=== PATIENT | female | born 1940 | race Two or more races ===

== ENCOUNTER 2024-01-31 05:22 | Inpatient (IN) | payer MEDICARE, OTHER ==
[~2024-01-31] VITALS: Ht 157.5 cm; Wt 71.7 kg
[2024-01-31] MEDS ORDERED: MIDAZOLAM HCL 2 MG/2ML VIAL ONE (06:02)
[2024-01-31] MEDS ORDERED: FENTANYL PF 100MCG/2ML AMPUL ONE (06:02)
[2024-01-31] MEDS ORDERED: POLYMYXIN B SULFATE 500,000 UNITS ONE (06:03)
[2024-01-31] MEDS ORDERED: LIDOCAINE 2%-EPI 1:100,000 30 ML VIAL ONE (06:03)
[2024-01-31] MEDS ORDERED: ANESTHESIA TRAY IN PYXIS 1 EA TRAY MC ONE (06:03)
[2024-01-31] MEDS ORDERED: BUPIVACAINE 0.5 % PF 150 MG/30 ML VIAL ONE ×2 (06:03→06:04)
[2024-01-31] MEDS ORDERED: TRANEXAMIC ACID 3,000 MG in SODIUM CHLORIDE IRRIG SOLUTION 70 ML IR ONE (07:00)
[2024-01-31] MEDS ORDERED: HYDROMORPHONE 1 MG/1 ML DISP.SYRIN IV PRN (07:00)
[2024-01-31] MEDS ORDERED: TRANEXAMIC ACID 1,000 MG/10 ML VIAL ONE (07:06)
[2024-01-31] MEDS ORDERED: SEVOFLURANE 250 ML BOTTLE IH ONE (07:21)
[2024-01-31] MEDS: TRAMADOL HCL 50 MG TABLET PO PRN (09:53)
[2024-01-31] MEDS ORDERED: SENNOSIDES 8.6 MG TABLET PO PRN (10:00)
[2024-01-31] MEDS ORDERED: BISACODYL SUPP (10 MG) 10 MG/SUPP.RECT SUPP.RECT RC PRN (10:00)
[2024-01-31] MEDS ORDERED: ACETAMINOPHEN 325 MG TABLET PO PRN (10:00)
[2024-01-31] MEDS ORDERED: DOCUSATE SODIUM 250 MG CAPSULE PO PRN (10:00)
[2024-01-31] MEDS ORDERED: ALEN70TA80 PO (11:15)
[2024-01-31] MEDS ORDERED: FAMO20TA8 PO (11:15)
[2024-01-31] MEDS ORDERED: CALC-1008 PO (11:15)
[2024-01-31] MEDS ORDERED: DIPH1TAB PO (11:15)
[2024-01-31] MEDS ORDERED: UBID200C36 PO (11:15)
[2024-01-31] MEDS ORDERED: BENZ200C53 PO (11:15)
[2024-01-31] MEDS ORDERED: CHOL100062 PO (11:15)
[2024-01-31] MEDS ORDERED: LACT1CAP69 PO (11:15)
[2024-01-31] MEDS ORDERED: CHLO25TA2 PO (11:15)
[2024-01-31] MEDS ORDERED: IRBE300T19 PO (11:15)
[2024-01-31] MEDS ORDERED: AZEL205. BNOSTRILS (11:15)
[2024-01-31] MEDS ORDERED: ROSU10TA2 PO (11:15)
[2024-01-31] MEDS ORDERED: ASPI-1420 PO (11:15)
[2024-01-31] MEDS ORDERED: DILT-3 PO (11:15)
[2024-01-31] MEDS ORDERED: MULT-754 PO (11:15)
[2024-01-31] MEDS: IV D5/0.45 NACL 1,000 ML IV PRN (14:47)
[2024-01-31] MEDS: ANCEF 1 GM/50 ML D5W IV SCH (16:26)
[2024-01-31] MEDS ORDERED: DIPHENOXYLATE HCL/ATROP SULF 1 UDTAB TABLET PO PRN (17:30)
[2024-01-31] MEDS ORDERED: ALENDRONATE 70 MG TABLET PO SCH (17:30)
[2024-01-31] MEDS ORDERED: [UNRECOGNIZED DRUG - OTHER] XX SCH (17:30)
[2024-01-31] MEDS ORDERED: HOME MED MISCELLANEOUS XX SCH (17:30)
[2024-01-31] MEDS ORDERED: BENZONATATE 100 MG CAPSULE PO PRN (17:30)
[2024-01-31] MEDS: CHOLECALCIFEROL 1,000 UNIT TABLET (VIT D3) PO SCH (17:45)
[2024-01-31] MEDS: ATORVASTATIN 40 MG TABLET PO SCH (17:50)
[2024-01-31] MEDS: CALCIUM CARB 600MG /VIT D 1 EACH TABLET PO SCH (17:51)
[2024-01-31] MEDS: LOSARTAN POTASSIUM 50 MG TABLET PO SCH (17:52)
[2024-01-31 20:00] VITALS: BP 126/57; TEMP 97.7; O2SAT 91
[2024-01-31 21:00] VITALS: O2SAT 95
[2024-01-31] MEDS: ZOLPIDEM TARTRATE 5 MG TABLET PO PRN (21:25)
[2024-02-01] MEDS: ONDANSETRON HCL/PF 4 MG/2 ML VIAL IV PRN (06:12)
[2024-02-01 07:30] VITALS: BP_SYST 122; BP_SYST 143; BP_DIAS 62; BP_DIAS 85; TEMP 98.1; TEMP 99.5; O2SAT 92; O2SAT 93
[2024-02-01] MEDS: ASPIRIN 325 MG TABLET PO SCH (08:19)
[2024-02-01] MEDS: LACTOBACILLUS RHAMNOSUS GG 1 EACH CAP.SPRINK PO SCH (08:20)
[2024-02-01] MEDS: MULTIVITAMINS,THERAGRAN 1 UDTAB TABLET PO SCH (08:20)
[2024-02-01] MEDS: FAMOTIDINE (20 MG) 20 MG TABLET PO SCH (08:20)
[2024-02-01 08:21] VITALS: BP 143/62
[2024-02-01] MEDS: DILTIAZEM HCL CD 240 MG PO SCH (08:21)
[2024-02-01] MEDS ORDERED: ASPIRIN EC 81 MG TABLET.DR PO SCH (09:00)
[2024-02-01] MEDS ORDERED: ASPI-992 PO (09:12)
== END 2024-02-01 14:00 | disposition home or self-care (01) | DRG 470 ==
LOC: DS 05:22 → MED 09:24
PROVIDERS: ADMIT Specialist; ATTEND Specialist
PROC: 0SRD0J9 Replacement of Left Knee Joint with Synthetic Substitute, Cemented, Open Approach (ICD-10-PCS; principal; 2024-01-31)
DX: M17.12 Unilateral primary osteoarthritis, left knee (principal); I10 Essential (primary) hypertension; E78.5 Hyperlipidemia, unspecified; K21.9 Gastro-esophageal reflux disease without esophagitis; M81.0 Age-related osteoporosis without current pathological fracture; K29.70 Gastritis, unspecified, without bleeding; M19.90 Unspecified osteoarthritis, unspecified site; Z79.83 Long term (current) use of bisphosphonates; Z79.899 Other long term (current) drug therapy; Z79.82 Long term (current) use of aspirin
CPT/HCPCS: 82962-TC; 97110-TC; 97116-TC; 97530-TC; A4217; A4223; C1713; C1776; G0378; J0690; J1100; J1170; J1885; J2250; J2405; J2704; J3010; J3490; J7060; L1830